=== PATIENT | female | born 1975 | race Caucasian/White ===

== ENCOUNTER 2017-08-25 13:45 | Emergency (ER) | payer OTHER ==
[~2017-08-25] VITALS: Ht 180.3 cm; Wt 108.0 kg
[~2017-08-25 13:45] MED LIST: ASPIRIN ENTERIC81 M1 PO; CORDROL20 MG PO; DIAMOX250 MG PO; ESTRAC1 PO; LAMICTAL200 MG PO; LATU80TA PO; NARATRIPTAN PO; PRAVASTATIN SOD20 MG PO; PREDNISONE10 MG PO; PREDNISONE50 MG PO; PRILOSEC20 MG PO; PRILOSEC40 M1 PO; RECLIPSEN PO; SAPHRIS10 M1 SL; SAPHRIS5 M1 SL; SEROQUEL XR300 MG PO; SYNTHROID,LEV100 MCG PO; SYNTHROID,LEVO50 MCG PO; ZANTAC 300300 MG PO; ZOFRAN ODT4 MG PO; ZOFRAN ODT4 MG SL; Zofran4 MG PO; [UNRECOGNIZED DRUG - OTHER] PO
== END 2017-08-25 15:09 | disposition home or self-care (01) ==
LOC: ED 13:45
DX: S90.31XA Contusion of right foot, initial encounter (principal); M25.561 Pain in right knee; F17.200 Nicotine dependence, unspecified, uncomplicated; X58.XXXA Exposure to other specified factors, initial encounter; Y93.9 Activity, unspecified; Y99.9 Unspecified external cause status; Y92.9 Unspecified place or not applicable

== ENCOUNTER → 2017-09-04 | Outpatient (CLI) | payer OTHER | END | disposition home or self-care (01) | LOC: US 18:16 | DX: M25.474 Effusion, right foot (principal); L53.9 Erythematous condition, unspecified ==

== ENCOUNTER 2017-09-08 12:02 | Emergency (ER) | payer OTHER ==
[~2017-09-08] VITALS: Ht 180.3 cm; Wt 108.0 kg
[2017-09-08] MEDS ORDERED: VRAYLAR6 MG PO (12:16)
[2017-09-08] MEDS ORDERED: NAPROSYN500 MG PO (13:28)
[2017-09-08] MEDS ORDERED: PHENERGAN25 M3 PO (13:28)
== END 2017-09-08 14:13 | disposition home or self-care (01) ==
LOC: ED 12:02
DX: R51 Headache (principal); R11.0 Nausea; F17.200 Nicotine dependence, unspecified, uncomplicated; Z79.899 Other long term (current) drug therapy

== ENCOUNTER 2017-09-14 10:56 | Emergency (ER) | payer OTHER ==
[~2017-09-14] VITALS: Ht 180.3 cm; Wt 108.0 kg
[~2017-09-14 10:56] MED LIST changes: +NAPROSYN500 MG PO; +PHENERGAN25 M3 PO; +VRAYLAR6 MG PO
== END 2017-09-14 12:15 | disposition home or self-care (01) ==
LOC: ED 10:56
DX: S90.122A Contusion of left lesser toe(s) without damage to nail, initial encounter (principal); F17.200 Nicotine dependence, unspecified, uncomplicated; F10.10 Alcohol abuse, uncomplicated; Z79.899 Other long term (current) drug therapy; W22.8XXA Striking against or struck by other objects, initial encounter; Y93.89 Activity, other specified; Y92.89 Other specified places as the place of occurrence of the external cause; Y99.8 Other external cause status

== ENCOUNTER 2018-04-14 22:43 | Emergency (ER) | payer OTHER ==
[~2018-04-14] VITALS: Ht 180.3 cm; Wt 113.4 kg
[2018-04-14] MEDS ORDERED: ATARAX,VISTARIL50 MG PO (23:01)
[2018-04-14] MEDS ORDERED: PREDNISONE20 M1 PO (23:01)
== END 2018-04-14 23:05 | disposition home or self-care (01) ==
LOC: ED 22:43
DX: B86 Scabies (principal); Z79.899 Other long term (current) drug therapy

== ENCOUNTER 2019-04-19 12:11 | Emergency (ER) | payer OTHER ==
[~2019-04-19] VITALS: Ht 180.3 cm; Wt 121.6 kg
[~2019-04-19 12:11] MED LIST changes: +ATARAX,VISTARIL50 MG PO; +CYCLOBENZAPRINE5 M3 PO; +Motrin,Rufen800 MG PO; +PREDNISONE20 M1 PO
[2019-04-19] MEDS ORDERED: PREDNISONE20 M1 PO (14:25)
[2019-04-19] MEDS ORDERED: IBU800 MG PO (14:25)
== END 2019-04-19 14:30 | disposition home or self-care (01) ==
LOC: ED 12:11
DX: S16.1XXA Strain of muscle, fascia and tendon at neck level, initial encounter (principal); M54.12 Radiculopathy, cervical region; Z79.899 Other long term (current) drug therapy; H53.8 Other visual disturbances; M25.511 Pain in right shoulder; V89.2XXA Person injured in unspecified motor-vehicle accident, traffic, initial encounter; Y93.89 Activity, other specified; Y92.89 Other specified places as the place of occurrence of the external cause; Y99.8 Other external cause status

== ENCOUNTER 2019-08-13 19:06 | Emergency (ER) | payer OTHER ==
[~2019-08-13] VITALS: Ht 180.3 cm; Wt 121.6 kg
[~2019-08-13 19:06] MED LIST changes: +IBU800 MG PO
[2019-08-13] MEDS ORDERED: IBU800 MG PO (20:49)
[2019-08-13] MEDS ORDERED: METHOCARBAMOL500 M1 PO (20:49)
== END 2019-08-13 21:39 | disposition home or self-care (01) ==
LOC: ED 19:06
DX: M43.6 Torticollis (principal); G43.909 Migraine, unspecified, not intractable, without status migrainosus; K21.9 Gastro-esophageal reflux disease without esophagitis; Z79.899 Other long term (current) drug therapy

== ENCOUNTER 2020-02-19 17:01 | Emergency (ER) | payer BC, OTHER ==
[~2020-02-19] VITALS: Ht 180.3 cm; Wt 112.5 kg
[~2020-02-19 17:01] MED LIST changes: +METHOCARBAMOL500 M1 PO
[2020-02-19] MEDS ORDERED: IBU800 MG PO (19:40)
[2020-02-19] MEDS ORDERED: NORCO 5-325 TA1 EACH PO (19:40)
== END 2020-02-19 19:42 | disposition home or self-care (01) ==
LOC: ED 17:01
DX: S52.601A Unspecified fracture of lower end of right ulna, initial encounter for closed fracture (principal); Z79.899 Other long term (current) drug therapy; X58.XXXA Exposure to other specified factors, initial encounter; Y93.89 Activity, other specified; Y92.89 Other specified places as the place of occurrence of the external cause; Y99.8 Other external cause status

== ENCOUNTER 2020-08-21 11:56 | Emergency (ER) | payer OTHER ==
[~2020-08-21] VITALS: Ht 180.3 cm; Wt 108.9 kg
[~2020-08-21 11:56] MED LIST changes: +NORCO 5-325 TA1 EACH PO
[2020-08-21] MEDS ORDERED: PRILOSEC20 M1 PO (12:08)
[2020-08-21] MEDS ORDERED: TRAMADOL HCL50 MG PO (14:22)
== END 2020-08-21 14:29 | disposition home or self-care (01) ==
LOC: ED 11:56
DX: G58.8 Other specified mononeuropathies (principal); G43.909 Migraine, unspecified, not intractable, without status migrainosus; Z79.899 Other long term (current) drug therapy

== ENCOUNTER 2021-02-24 11:23 | Emergency (ER) | payer OTHER ==
[~2021-02-24] VITALS: Ht 152.4 cm; Wt 95.3 kg
[~2021-02-24 11:23] MED LIST changes: +PRILOSEC20 M1 PO; +TRAMADOL HCL50 MG PO
[2021-02-24] MEDS ORDERED: PREDNISONE20 M1 PO (13:55)
[2021-02-24] MEDS ORDERED: METHOCARBAMOL500 M1 PO (13:55)
== END 2021-02-24 14:03 | disposition home or self-care (01) ==
LOC: ED 11:23
DX: M54.12 Radiculopathy, cervical region (principal); G43.909 Migraine, unspecified, not intractable, without status migrainosus; F32.9 Major depressive disorder, single episode, unspecified; Z79.899 Other long term (current) drug therapy; Z96.22 Myringotomy tube(s) status

== ENCOUNTER 2021-04-13 04:05 | Emergency (ER) | payer OTHER ==
[~2021-04-13] VITALS: Ht 165.1 cm; Wt 81.6 kg
== END 2021-04-13 04:30 | disposition home or self-care (01) ==
LOC: ED 04:05
DX: G89.29 Other chronic pain (principal); M79.641 Pain in right hand; Z79.899 Other long term (current) drug therapy

== ENCOUNTER 2021-05-29 10:33 | Emergency (ER) | payer OTHER ==
[2021-05-29] MEDS ORDERED: NAPROSYN500 MG PO (13:40)
== END 2021-05-29 13:49 | disposition home or self-care (01) ==
LOC: ED 10:33
DX: S20.212A Contusion of left front wall of thorax, initial encounter (principal); Z79.899 Other long term (current) drug therapy; W51.XXXA Accidental striking against or bumped into by another person, initial encounter; Y93.89 Activity, other specified; Y92.89 Other specified places as the place of occurrence of the external cause; Y99.8 Other external cause status

== ENCOUNTER 2021-08-30 15:48 | Emergency (ER) | payer OTHER ==
[~2021-08-30] VITALS: Ht 180.3 cm; Wt 93.0 kg
== END 2021-08-30 19:20 | disposition home or self-care (01) ==
LOC: ED 15:48
DX: G43.909 Migraine, unspecified, not intractable, without status migrainosus (principal); Z79.899 Other long term (current) drug therapy

== ENCOUNTER 2021-10-10 12:46 | Emergency (ER) | payer OTHER ==
[~2021-10-10] VITALS: Ht 180.3 cm; Wt 97.5 kg
[2021-10-10] MEDS ORDERED: PROZAC40 M1 PO (13:38)
== END 2021-10-10 15:48 | disposition left against medical advice (07) ==
LOC: ED 12:46
DX: R51.9 Headache, unspecified (principal); M79.601 Pain in right arm; R20.0 Anesthesia of skin; M43.6 Torticollis; Z53.21 Procedure and treatment not carried out due to patient leaving prior to being seen by health care provider

== ENCOUNTER 2022-01-08 15:26 | Emergency (ER) | payer OTHER ==
[~2022-01-08 15:26] MED LIST changes: +PROZAC40 M1 PO
== END 2022-01-08 15:54 | disposition left against medical advice (07) ==
LOC: ED 15:26
DX: Z53.21 Procedure and treatment not carried out due to patient leaving prior to being seen by health care provider (principal)

== ENCOUNTER 2023-04-22 14:08 | Emergency (ER) | payer OTHER ==
[~2023-04-22] VITALS: Ht 180.3 cm; Wt 96.2 kg
[2023-04-22] MEDS ORDERED: PERCOCET 5-3251 EACH PO (15:07)
== END 2023-04-22 15:15 | disposition home or self-care (01) ==
LOC: ED 14:08
DX: S39.011A Strain of muscle, fascia and tendon of abdomen, initial encounter (principal); F32.A Depression, unspecified; Z98.890 Other specified postprocedural states; Z79.899 Other long term (current) drug therapy; Z96.22 Myringotomy tube(s) status; Z87.42 Personal history of other diseases of the female genital tract; X58.XXXA Exposure to other specified factors, initial encounter; Y93.89 Activity, other specified; Y92.89 Other specified places as the place of occurrence of the external cause; Y99.8 Other external cause status